=== PATIENT | female | born 1980 | race Two or more races ===

== ENCOUNTER 2023-08-08 09:01 | Emergency (ER) | payer OTHER ==
[~2023-08-08] VITALS: Ht 157.5 cm; Wt 85.6 kg
[2023-08-08 09:30] VITALS: BP 137/61; PULSE 74; RESP 18; TEMP 98; O2SAT 98
[2023-08-08] MEDS ORDERED: HYDROcodone-ACET 5/325MG TAB PO ONE (09:30)
[2023-08-08] MEDS ORDERED: CLIN300C70 PO (09:31)
[2023-08-08] MEDS ORDERED: HUR60 MT (09:31)
[2023-08-08] MEDS ORDERED: PROM1SOL4 PO (09:47)
== END 2023-08-08 09:58 | disposition home or self-care (01) ==
LOC: ER 09:01
DX: K04.7 Periapical abscess without sinus (principal); J06.9 Acute upper respiratory infection, unspecified; Z79.899 Other long term (current) drug therapy

== ENCOUNTER 2023-08-22 09:00 | Emergency (ER) | payer OTHER ==
[~2023-08-22] VITALS: Ht 167.6 cm; Wt 85.6 kg
[~2023-08-22 09:00] MED LIST: CLIN300C70 PO; HUR60 MT; PROM1SOL4 PO
[2023-08-22 10:05] VITALS: BP 113/54; PULSE 68; RESP 18; TEMP 98; O2SAT 97
[2023-08-22] MEDS: KETOROLAC TROMETH 60MG/2ML VIAL IM ONE (10:52)
[2023-08-22] MEDS: HYDROcodone-ACET 5/325MG TAB PO ONE (10:52)
[2023-08-22] MEDS ORDERED: BACL10TA PO (10:58)
[2023-08-22] MEDS ORDERED: TRAM50TA2 PO (10:58)
== END 2023-08-22 11:13 | disposition home or self-care (01) ==
LOC: ER 09:00
DX: S39.012A Strain of muscle, fascia and tendon of lower back, initial encounter (principal); Z79.2 Long term (current) use of antibiotics; Z79.899 Other long term (current) drug therapy; X50.1XXA Overexertion from prolonged static or awkward postures, initial encounter; Y93.89 Activity, other specified; Y92.89 Other specified places as the place of occurrence of the external cause; Y99.8 Other external cause status
CPT/HCPCS: 72100; 96372; 99283; J1885